=== PATIENT | male | born 1950 | race Two or more races ===

== ENCOUNTER 2016-06-21 08:17 | Emergency (ER) | payer MEDICARE ==
[~2016-06-21] VITALS: Ht 177.8 cm; Wt 86.2 kg
--- NOTE | 2016-06-21 08:42 | Emergency Room Report ---
History of Present Illness General Chief Complaint: Chest Pain Source: Patient Present Illness HPI 66 YOM with acute SOB with cough and chest pain since this morning. +smoker. Denies history of asthma, COPD, CAD, CHF. Has had cough, fever/chills lately. No recent hospitalizations or sick contacts. No history of DVT/PE. Allergies: Coded Allergies: ACETAMINOPHEN (Verified Adverse Reaction, Intermediate, 06/21/16) Patient History Past Medical History: none Past Surgical History: none Pertinent Family History: none Social History: Reports: smoking Immunizations: UTD Reviewed Nursing Documentation: PMH: Agreed, PSxH: Agreed Nursing Documentation-PMH Past Medical History: No Stated History Review of Systems All Other Systems: negative except mentioned in HPI Physical Exam Vital Signs Date Time Temp Pulse Resp B/P Pulse Ox O2 Delivery O2 Flow Rate FiO2 06/21/16 08:25 103.8 142 23 174/110 96 Room Air Sp02 EP Interpretation: abnormal General Appearance: normal inspection, alert, GCS 15, non-toxic, mild distress Head: normocephalic, atraumatic Eyes: bilateral eye EOMI, bilateral eye PERRL ENT: normal ENT inspection, hearing grossly normal, normal voice Neck: normal inspection, full range of motion, supple, no bony tend Respiratory: normal inspection, lungs clear, normal breath sounds, no rhonchi, no respiratory distress, no retraction, no accessory muscle use, no wheezing Cardiovascular #1: tachycardia Gastrointestinal: normal inspection, normal bowel sounds, non tender, soft, no guarding, no hernia Genitourinary: no CVA tenderness Musculoskeletal: normal inspection, back normal, normal range of motion, Beverley' s Sign negative Neurologic: normal inspection, alert, oriented x3, responsive, process validation engineer III-XII nml as tested, motor strength/tone normal, speech normal Psychiatric: normal inspection, judgement/insight normal, mood/affect normal Skin: normal inspection, normal color, no rash Procedures Critical Care Time Critical Care Time 45 minutes Care for 66YOM for chest pain, SOB. VS significant for high fever, tachycardia. DDx includes sepsis, colitis, pyelo, UTI, COPD/asthma, PNA Care included sepsis order set for labs, 30cc/kg fluid resuscitation, initiation of IV antibiotics, ibuprofen fever Care may include administration of vasopressors started to support failing circulatory system, includes frequent re-exam, interpretation of lab studies and consultation with hospitalist/sign letterer. 45 minutes of critical care time was spent with this patient not including time spent performing separately reportable procedures. Medical Decision Making Diagnostic Impression: Primary Impression: Fever Qualified Codes: R50.9 - Fever, unspecified Additional Impression: SOB (shortness of breath) ER Course 66 YO M with acute SOB, found to have high fever. Normotensive. Normal O2. DDx includes ACS, PNA, CHF, COPD PLAN Cardiac, O2 monitor, Ibuprofen for fever, IVF, Empiric Abx, Sepsis protocol Admit EKG Diagnostic Results Rate: tachycardiac Rhythm: NSR ST Segments: no acute changes ASA given to the pt in ED: No Rhythm Strip Diag. Results EP Interpretation: yes Rate: 104 Rhythm: NSR Chest X-Ray Diagnostic Results EP Interpretation: Yes Findings: no consolidation, no effusion, no pneumothorax Number of Views: 1 Reevaluation Time: 09:35 Last Vital Signs Date Time Temp Pulse Resp B/P Pulse Ox O2 Delivery O2 Flow Rate FiO2 06/21/16 08:25 103.8 142 23 174/110 96 Room Air Status: improved Reevaluation Impression labs: Mild leuks. LUCIAN. UA negative for infection CXR does not demonstrate obvious PNA A: HR improved to 108 from 140 after fluid resuscitation, ibuprofen, Abx LUCIAN on labs Fever of unknown source, possible early PNA Strongly advised admission for sepsis, LUCIAN Patient does not want to stay. Signed out AMA. Patient alert and oriented. Has capacity. Does not have PMD for followup=states he will come back to ED if worsens Agrees to PO Abx starting tomorrow for infection of unknown source, possibly PNA given SOB, cough, fever that started today Disposition: AGAINST MEDICAL ADVICE Condition: Critical KATERINA CEDILLO M.D. Jun 21, 2016 08:42
[2016-06-21] MEDS ORDERED: NS 1000ml 2,600 ML IVLG ONE (08:45)
[2016-06-21] MEDS ORDERED: Azithromycin 500 MG in NS 250 ML IV ONE (08:45)
[2016-06-21 09:01] VITALS: BP 172/103
[2016-06-21] MEDS ORDERED: NKM (09:01)
[2016-06-21 09:05] LABS: APPEARANCE,URINE CLEAR; KETONES,URINE NEGATIVE (NEGATIVE); LEUKOCYTE ESTERASE ,URINE NEGATIVE (NEGATIVE); NITRITE,URINE NEGATIVE (NEGATIVE); PH,URINE 6 (4.5-8.0); PROTEIN,URINE 4+ (NEGATIVE); UROBILINOGEN,URINE NORMAL MG/DL (0.0-1.0)
[2016-06-21 09:07] LABS: MEAN CORPUSCULAR HGB CONC 31.7 G/DL (32.0-36.0); MEAN CORPUSCULAR VOLUME 85 FL (80-99); MEAN PLATELET VOLUME 9.4 FL (6.5-10.1); PLATELET COUNT 171 K/UL (150-450); RED BLOOD COUNT 5.56 M/UL (4.70-6.10); RED CELL DISTRIBUTION WIDTH 13.6 % (11.6-14.8); WHITE BLOOD COUNT 11.8 K/UL (4.8-10.8)
[2016-06-21] MEDS ORDERED: Azithromycin Inj IV ONE (09:11)
[2016-06-21 09:14] LABS: ALANINE AMINOTRANSFERASE 16 U/L (3-41); ALBUMIN/GLOBULIN RATIO 1.3 (1.0-2.7); ANION GAP 19 (5-15); ASPARTATE AMINO TRANSFERASE 21 U/L (5-40); CALCIUM 9.2 mg/dL (8.6-10.2); CARBON DIOXIDE 22 mEQ/L (20-30); CHLORIDE 96 mEQ/L (98-107); CREATININE 1.9 mg/dL (0.7-1.2); GLOMERULAR FILTRATION RATE 35.6 mL/min (>60); HEMOLYSIS 2; POTASSIUM 4.1 mEQ/L (3.4-4.9); SODIUM 137 mEQ/L (135-145); TOTAL PROTEIN 7.2 g/dL (6.6-8.7)
[2016-06-21 09:17] LABS: TROPONIN I < 0.30 ng/mL (<=0.30)
[2016-06-21 09:19] VITALS: BP 143/98
[2016-06-21 09:19] LABS: REFLEX LACTIC ACID YES OR NO YES
[2016-06-21 09:24] LABS: BACTERIA,URINE FEW /HPF; FINE GRANULAR CASTS,URINE 0-2 /LPF; SQUAMOUS EPITHELIAL CELL,UR FEW /LPF (NONE/OCC)
[2016-06-21 09:26] LABS: CKMB < 1.5 ng/mL (< 6.7)
[2016-06-21] MEDS ORDERED: LEVOFLOXACIN750 MG ORAL (09:39)
[2016-06-21 10:05] LABS: BAND NEUTROPHILS % (MANUAL) 0 % (0-8); BASOPHILS % (MANUAL) 0 % (0-2); EOSINOPHILS % (MANUAL) 2 % (0-3); LYMPHOCYTES % (MANUAL) 3 % (20-45); NEUTROPHILS % (MANUAL) 94 % (45-75); PLATELET ESTIMATE ADEQUATE; PLATELET MORPHOLOGY NORMAL; TOTAL CELLS COUNTED 100
[2016-06-21 10:28] VITALS: BP 140/91
[2016-06-21 10:29] VITALS: BP 140/91
--- NOTE | 2016-06-21 11:54 | Diagnostic Imaging Report ---
Indication: Chest pain Technique: Single portable AP view of the chest. Findings: Comparison: None. Thoracic aorta mildly calcified and elongated. Suggestion of one or more small calcified nodules in left hilum. The bones and extra pulmonary soft tissues, remainder of the cardiomediastinal silhouette, pulmonary vasculature and parenchyma, and pleural surfaces are unremarkable. IMPRESSION: No evidence of acute cardiopulmonary disease Aortosclerosis and probable chronic hypertensive change Suggestion of left hilar old granulomatous disease.
--- NOTE | 2016-06-22 10:35 | Emergency Room Report ---
Physical Exam Vital Signs Date Time Temp Pulse Resp B/P Pulse Ox O2 Delivery O2 Flow Rate FiO2 06/21/16 08:25 103.8 142 23 174/110 96 Room Air 06/21/16 09:01 2.0 Medical Decision Making Diagnostic Impression: Primary Impression: Fever Additional Impression: SOB (shortness of breath) ER Course Notified by laboratory that the patient had a positive culture of blood times one with gram-negative rods. Patient left AMA yesterday for fever and possible sepsis, declined admission. I attempted to leave a message with the patient at the 2 numbers we have listed, which was a place of business., I did leave a message at [phone] requesting to have Mr. Huber call the hospital. Though the message service, voicemail was not certain if this was an appropriate number for the patient. Notify nursing staff we will await a call back from Mr. Huber's number, I will attempt a second call later today as well as we will send certified mail to the patient. Last Vital Signs Date Time Temp Pulse Resp B/P Pulse Ox O2 Delivery O2 Flow Rate FiO2 06/21/16 10:29 99.2 101 23 140/91 98 Nasal Cannula 2.0 Disposition: AGAINST MEDICAL ADVICE Condition: Improved Scripts Levofloxacin* (LEVOFLOXACIN*) 750 Mg Tablet 750 MG ORAL DAILY for 5 Days, #5 TAB Prov: KATERINA CEDILLO M.D. 06/21/16 Referrals: NOT CHOSEN IPA/,REFERRING (PCP) Patient Instructions: Shortness of Breath, [id number], Community-Acquired Pneumonia, Adult, [id number] Additional Instructions: - Take ALL antibiotics as prescribed - Follow up with a primary care doctor in 2-3 days or return to ER for worsening symptoms - Drink plenty of fluids Reuben Aiken MD Jun 22, 2016 10:35
--- NOTE | 2016-06-22 19:39 | Cardiology Report ---
APPROVED REPORT EKG Measurement Heart [id number] Sinus tachycardia Left axis deviation Nonspecific ST abnormality Abnormal ECG
== END 2016-06-21 10:32 | disposition left against medical advice (07) ==
LOC: EMR 09:00 → CANBEDREQ 09:33 → EMR 10:32
DX: R50.9 Fever, unspecified (principal); R06.02 Shortness of breath; R78.81 Bacteremia
CPT/HCPCS: 36415; 71010; 80053; 81003; 82550; 82553; 83605; 84484; 85007; 85025; 87040; 87181; 96374; 96375; 99282; 99284; J0456; J0696; J7050; 93005

== ENCOUNTER 2016-06-28 09:46 | Emergency (ER) | payer MEDICARE ==
[~2016-06-28] VITALS: Ht 177.8 cm; Wt 86.2 kg
[~2016-06-28 09:46] MED LIST: LEVOFLOXACIN750 MG ORAL; NKM
--- NOTE | 2016-06-28 10:12 | Emergency Room Report ---
History of Present Illness General Chief Complaint: General Complaint Source: Patient Present Illness HPI Patient was here last week diagnosed with pneumonia And requested admission to the hospital patient left AGAINST MEDICAL ADVICE And in the interim patient's blood culture did come back positive One out of 2 bottles Patient was on Levaquin which appears to have been sensitive to the culture And patient also states that his symptoms had improved significantly Patient has been afebrile Patient had been initially contacted the day after his presentation Patient spoke to someone on Thursday And it has been approximately 5 days that has passed And patient presents for evaluation Allergies: Coded Allergies: ACETAMINOPHEN (Verified Adverse Reaction, Intermediate, 06/21/16) Patient History Past Medical History: see triage record Pertinent Family History: none Reviewed Nursing Documentation: PMH: Agreed, PSxH: Agreed Nursing Documentation-PMH Past Medical History: No Stated History Review of Systems All Other Systems: negative except mentioned in HPI Physical Exam Vital Signs Date Time Temp Pulse Resp B/P Pulse Ox O2 Delivery O2 Flow Rate FiO2 06/28/16 09:53 97.9 84 18 197/126 97 Room Air Sp02 EP Interpretation: reviewed, normal General Appearance: well appearing, no apparent distress Head: normocephalic, atraumatic Eyes: bilateral eye EOMI, bilateral eye PERRL ENT: hearing grossly normal, normal pharynx, TMs + canals normal, uvula midline Neck: full range of motion, supple, no meningismus, no bony tend Respiratory: lungs clear, normal breath sounds, no rhonchi, no respiratory distress, no retraction, no accessory muscle use Cardiovascular #1: normal peripheral pulses, regular rate, rhythm, no edema, no gallop, no JVD, no murmur Gastrointestinal: normal bowel sounds, non tender, soft, no mass, no organomegaly, non-distended, no guarding, no hernia, no pulsatile mass, no rebound Musculoskeletal: normal inspection Neurologic: oriented x3, responsive, manufacturing clerk III-XII nml as tested, motor strength/ tone normal, sensory intact Psychiatric: mood/affect normal Skin: normal color, no rash, warm/dry, palpation normal Lymphatic: normal inspection, no adenopathy Medical Decision Making Diagnostic Impression: Primary Impression: Pneumonia Additional Impression: Positive blood culture ER Course Patient's previous visit was evaluated Patient had a positive blood culture in one out of 2 bottles Evaluation of this reveals sensitivity to Levaquin which the patient was on Again the patient had been notified approximately 6 days ago, and presents for evaluation given the contacts which was made through the emergency department patient has been afebrile Clinically looks well repeat blood test was performed for evaluation of bacteremia patient continues to be negative and at this time stable for close outpatient followup Labs Test 06/28/16 10:20 White Blood Count 10.4 K/UL (4.8-10.8) Red Blood Count 5.77 M/UL (4.70-6.10) Hemoglobin 15.3 G/DL (14.2-18.0) Hematocrit 49.8 % (42.0-52.0) Mean Corpuscular Volume 86 FL (80-99) Mean Corpuscular Hemoglobin 26.5 PG (27.0-31.0) Mean Corpuscular Hemoglobin Concent 30.7 G/DL (32.0-36.0) Red Cell Distribution Width 13.5 % (11.6-14.8) Platelet Count 276 K/UL (150-450) Mean Platelet Volume 7.8 FL (6.5-10.1) Neutrophils (%) (Auto) 54.3 % (45.0-75.0) Lymphocytes (%) (Auto) 32.7 % (20.0-45.0) Monocytes (%) (Auto) 6.8 % (1.0-10.0) Eosinophils (%) (Auto) 3.5 % (0.0-3.0) Basophils (%) (Auto) 2.8 % (0.0-2.0) Last Vital Signs Date Time Temp Pulse Resp B/P Pulse Ox O2 Delivery O2 Flow Rate FiO2 06/28/16 09:53 97.9 84 18 197/126 97 Room Air Status: improved Disposition: HOME, SELF-CARE Condition: Improved Scripts Levofloxacin* (LEVAQUIN*) 500 Mg Tablet 500 MG ORAL DAILY for 10 Days, TAB Prov: SELVIN MORRIS D.O. 06/28/16 Additional Instructions: Patient is provided with the discharge instructions notified to follow up with primary doctor in the next 2-3 days otherwise return to the er with any worsening symptoms. SELVIN MORRIS D.O. Jun 28, 2016 10:12
[2016-06-28 10:32] LABS: BASOPHILS % (AUTO) 2.8 % (0.0-2.0); EOSINOPHILS % (AUTO) 3.5 % (0.0-3.0); LYMPHOCYTES % (AUTO) 32.7 % (20.0-45.0); MEAN CORPUSCULAR HEMOGLOBIN 26.5 PG (27.0-31.0); MEAN CORPUSCULAR HGB CONC 30.7 G/DL (32.0-36.0); MEAN CORPUSCULAR VOLUME 86 FL (80-99); MEAN PLATELET VOLUME 7.8 FL (6.5-10.1); MONOCYTES % (AUTO) 6.8 % (1.0-10.0); NEUTROPHILS % (AUTO) 54.3 % (45.0-75.0); PLATELET COUNT 276 K/UL (150-450); RED BLOOD COUNT 5.77 M/UL (4.70-6.10); RED CELL DISTRIBUTION WIDTH 13.5 % (11.6-14.8); WHITE BLOOD COUNT 10.4 K/UL (4.8-10.8)
[2016-06-28] MEDS ORDERED: LEVAQUIN500 MG ORAL (11:14)
[2016-06-28 11:38] VITALS: BP 193/108
[2016-06-28 11:41] VITALS: BP 193/108
== END 2016-06-28 11:41 | disposition home or self-care (01) ==
LOC: EMR 10:17
DX: J18.9 Pneumonia, unspecified organism (principal); R78.81 Bacteremia; Z88.6 Allergy status to analgesic agent
CPT/HCPCS: 36415; 85025; 99283

== ENCOUNTER 2016-11-01 10:44 | Emergency (ER) | payer MEDICARE ==
[~2016-11-01] VITALS: Ht 177.8 cm; Wt 79.4 kg
[~2016-11-01 10:44] MED LIST changes: +LEVAQUIN500 MG ORAL
[2016-11-01 11:14] VITALS: BP 176/106
[2016-11-01] MEDS ORDERED: TRAMADOL HCL50 MG ORAL (11:26)
[2016-11-01 11:36] VITALS: BP 176/106
--- NOTE | 2016-11-01 13:02 | Emergency Room Report ---
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 he felt increased pain to the left inguinal region And the pain has intermittently persisted Pain is worse with standing and driving denies any chest pain or shortness of breath denies any dysuria frequency Pain is 6/10 worse with exertion Denies any fall or trauma otherwise Allergies: Coded Allergies: ACETAMINOPHEN (Verified Adverse Reaction, Intermediate, 06/21/16) Patient History Past Medical History: see triage record Pertinent Family History: none Reviewed Nursing Documentation: PMH: Agreed, PSxH: Agreed Review of Systems All Other Systems: negative except mentioned in HPI Physical Exam Vital Signs Date Time Temp Pulse Resp B/P Pulse Ox O2 Delivery O2 Flow Rate FiO2 11/01/16 10:49 98.1 88 16 197/123 99 Room Air Sp02 EP Interpretation: reviewed, normal General Appearance: well appearing, no apparent distress Head: normocephalic, atraumatic Eyes: bilateral eye EOMI, bilateral eye PERRL ENT: hearing grossly normal, normal pharynx, TMs + canals normal, uvula midline Neck: full range of motion, supple, no meningismus, no bony tend Respiratory: lungs clear, normal breath sounds, no rhonchi, no respiratory distress, no retraction, no accessory muscle use Cardiovascular #1: normal peripheral pulses, regular rate, rhythm, no edema, no gallop, no JVD, no murmur Gastrointestinal: normal bowel sounds, soft, no organomegaly, non-distended, no guarding, no pulsatile mass, no rebound, other - Patient has bilateral inguinal hernias, left is new per the person, however soft and easily reducible , patient also has obvious herniation to the right scrotal area, abdomen otherwise soft Genitourinary: no CVA tenderness Neurologic: oriented x3, responsive, favor maker III-XII nml as tested, motor strength/ tone normal, sensory intact Psychiatric: mood/affect normal Skin: normal color, no rash, warm/dry, palpation normal Lymphatic: normal inspection, no adenopathy Medical Decision Making Diagnostic Impression: Primary Impression: inguinal hernia ER Course Patient has obvious significant inguinal hernias, the abdomen otherwise is soft and the inguinal canal hernia is easily reducible, patient requires close outpatient followup No signs of any strangulation or incarceration However general surgery followup is critical Last Vital Signs Date Time Temp Pulse Resp B/P Pulse Ox O2 Delivery O2 Flow Rate FiO2 11/01/16 11:36 98.3 84 15 176/106 98 Room Air Status: improved Disposition: HOME, SELF-CARE Condition: Stable Scripts Tramadol Hcl* (ULTRAM*) 50 Mg Tablet 50 MG ORAL Q6H Y for For Pain, #12 TAB 0 Refills Prov: SELVIN MORRIS D.O. 11/01/16 Referrals: NANCY WONG NON PHYSICIAN (PCP) Mau Luis MD Patient Instructions: Inguinal Hernia, Adult, [id number] Additional Instructions: Patient is provided with the discharge instructions notified to follow up with primary doctor in the next 2-3 days otherwise return to the er with any worsening symptoms. Please note that this report is being documented using [employer] technology. This can lead to erroneous entry secondary to incorrect interpretation by the dictating instrument. SELVIN MORRIS D.O. November 01, 2016 13:02
== END 2016-11-01 11:36 | disposition home or self-care (01) ==
LOC: EMR 11:15
DX: K40.91 Unilateral inguinal hernia, without obstruction or gangrene, recurrent (principal); Z88.6 Allergy status to analgesic agent
CPT/HCPCS: 99283

== ENCOUNTER 2017-07-06 19:01 | Emergency (ER) | payer MEDICARE ==
[~2017-07-06] VITALS: Ht 177.8 cm; Wt 88.5 kg
[~2017-07-06 19:01] MED LIST changes: +TRAMADOL HCL50 MG ORAL
[2017-07-06 19:30] VITALS: BP 150/82
[2017-07-06] MEDS ORDERED: Surgicel 4in x 8in TOPIC ONE (20:00)
[2017-07-06 20:40] VITALS: BP 140/81
[2017-07-06 20:44] VITALS: BP 140/81
--- NOTE | 2017-07-07 14:42 | Emergency Room Report ---
History of Present Illness General Chief Complaint: General Complaint Source: Patient, Medical Record Present Illness HPI Patient presented for right scrotal wound opening. The patient recent surgery for hydrocele to correct surgery for right inguinal hernia. The patient was noted to have increased bleeding from his incision site which had opened. The patient is being followed by urology who had from his surgery. The patient denied any fever he denied any drainage from the wound. Allergies: Coded Allergies: ACETAMINOPHEN (Verified Adverse Reaction, Intermediate, 06/21/16) Patient History Past Medical History: see triage record Reviewed Nursing Documentation: PMH: Agreed, PSxH: Agreed Nursing Documentation-PMH Past Medical History: No History, Except For Physical Exam Vital Signs Date Time Temp Pulse Resp B/P (MAP) Pulse Ox O2 Delivery O2 Flow Rate FiO2 07/06/17 19:10 98.1 99 18 164/84 97 Room Air General Appearance: well appearing, no apparent distress, alert, GCS 15 Head: normocephalic, atraumatic ENT: hearing grossly normal, normal voice Neck: full range of motion, supple Respiratory: no respiratory distress, speaking full sentences Cardiovascular #1: normal inspection, regular rate, rhythm Gastrointestinal: normal inspection, soft Musculoskeletal: normal inspection, back normal, gait/station normal, no calf tenderness Neurologic: normal inspection, alert, oriented x3, responsive, director outpatient services III-XII nml as tested, normal gait Psychiatric: mood/affect normal Skin: no rash Medical Decision Making Diagnostic Impression: Primary Impression: Wound dehiscence, surgical ER Course Patient presented for surgical wound opening. Differential diagnosis included was not limited to cellulitis, scrotal hematoma, hydrocele, hernia among others. Patient has a benign exam and does not appear to require any further imaging or laboratory testing at this time. The patient wound was cleansed and Surgicel was applied. The patient's wound does not appear to be infected this time. The patient is advised to follow up with urologist in 1-2 days. Patient is advised to return if any worsening condition or if any changes in status that are concerning. This report is dictated with [employer] hardware engineering manager software which may occasionally lead to discrepancies related to use of this software. Last Vital Signs Date Time Temp Pulse Resp B/P (MAP) Pulse Ox O2 Delivery O2 Flow Rate FiO2 07/06/17 20:44 98.1 77 16 140/81 100 Room Air Status: improved Disposition: HOME, SELF-CARE Condition: Stable Referrals: Krystian Aguilar MD NON PHYSICIAN (PCP) Patient Instructions: Wound Dehiscence Bryce Lozano Jul 07, 2017 14:42
== END 2017-07-06 20:50 | disposition home or self-care (01) ==
LOC: EMR 20:50
DX: T81.31XA Disruption of external operation (surgical) wound, not elsewhere classified, initial encounter (principal); Y83.8 Other surgical procedures as the cause of abnormal reaction of the patient, or of later complication, without mention of misadventure at the time of the procedure; Y92.9 Unspecified place or not applicable; Z88.6 Allergy status to analgesic agent
CPT/HCPCS: 99282

== ENCOUNTER 2017-07-07 10:22 | Emergency (ER) | payer MEDICARE ==
[~2017-07-07] VITALS: Ht 177.8 cm; Wt 88.5 kg
[2017-07-07 10:50] VITALS: BP 160/99
[2017-07-07] MEDS ORDERED: cefTRIAXone 1 GM in NS 55 ML IVPB ONE (11:30)
[2017-07-07] MEDS ORDERED: Surgicel 4in x 8in TOPIC ONE (12:20)
--- NOTE | 2017-07-07 12:22 | Emergency Room Report ---
History of Present Illness General Chief Complaint: Wound Recheck/Suture Removal Source: Patient Present Illness HPI Patient presents with dehiscence and bleeding of scrotal wound. He was seen here last night and the wound was dressed with Surgicel. The bleeding started again today. Part of the dressing was soaked with blood. He denies fever or pain. He had a hernia repair and then repair of hydrocele in [place]. He states there were complications after the operation, but claims that the wound has since opened more. No dysuria. No abdominal pain, chest pain, change in bowels. Last night, he received a referral for a local urologist but has not been able to make an appointment. Allergies: Coded Allergies: ACETAMINOPHEN (Verified Adverse Reaction, Intermediate, 06/21/16) Patient History Past Medical History: see triage record Past Surgical History: other - R hernia repair Social History Narrative at home Reviewed Nursing Documentation: PMH: Agreed, PSxH: Agreed Review of Systems All Other Systems: negative except mentioned in HPI Physical Exam Vital Signs Date Time Temp Pulse Resp B/P (MAP) Pulse Ox O2 Delivery O2 Flow Rate FiO2 07/07/17 10:33 97.7 89 20 160/103 99 Room Air Sp02 EP Interpretation: reviewed, normal General Appearance: well appearing, no apparent distress, GCS 15 Head: normocephalic Eyes: bilateral eye normal inspection, bilateral eye PERRL ENT: moist mucus membranes Neck: supple Respiratory: lungs clear, normal breath sounds Cardiovascular #1: regular rate, rhythm Cardiovascular #2: 2+ radial (R) Gastrointestinal: normal inspection, normal bowel sounds, non tender, no mass, non-distended Genitourinary: penis normal, other - swelling bilaterally of scrota, worse on R (see sking) Musculoskeletal: back normal, gait/station normal, normal range of motion Neurologic: alert, oriented x3, grossly normal Psychiatric: mood/affect normal Skin: warm/dry, other - dehincence of scrotal wound with some oozing of blood [place] Medical Decision Making Diagnostic Impression: Primary Impression: Wound infection after surgery Qualified Codes: T81.4XXD - Infection following a procedure, subsequent encounter Additional Impressions: Wound dehiscence, surgical Qualified Codes: T81.31XD - Disruption of external operation (surgical) wound , not elsewhere classified, subsequent encounter Bleeding from wound AMA ER Course Patient with bleeding and wound dehiscence. See report from last night. Based on clinical exam, this wound is infected. It will probably need to heal by secondary closure. The bleeding in minimal, however labs are indicated. The patient will receive IV hydration and IV antibiotics. The patient refuses IV and labs. He states he wants to go where his surgeon and other doctors are ([facility]). I told him he could from this infection. He is aware of this but wants to seek care from his doctors and plans to go now. (AMA signed) The wound was re-dressed with Surgicel and the bleeding was controlled before discharge. Keflex is given PO here. Last Vital Signs Date Time Temp Pulse Resp B/P (MAP) Pulse Ox O2 Delivery O2 Flow Rate FiO2 07/07/17 13:02 78 18 130/80 98 Room Air 07/07/17 10:33 97.7 Status: improved Disposition: AGAINST MEDICAL ADVICE Condition: Stable Referrals: NON PHYSICIAN (PCP) Angel Luis Sherwood M.D. Jul 07, 2017 12:22
[2017-07-07] MEDS ORDERED: Cephalexin 500mg cap ORAL ONE (12:45)
[2017-07-07 13:02] VITALS: BP 130/80
== END 2017-07-07 13:08 | disposition left against medical advice (07) ==
LOC: EMR 11:20 → CANBEDREQ 12:39 → EMR 13:08
DX: T81.31XD Disruption of external operation (surgical) wound, not elsewhere classified, subsequent encounter (principal); T81.4XXD Infection following a procedure, subsequent encounter; Z88.6 Allergy status to analgesic agent
CPT/HCPCS: 96365; 96366; 99284